=== PATIENT | male | born 1995 ===

== ENCOUNTER 2020-08-15 15:01 | Emergency (ER) | payer OTHER ==
[2020-08-15 15:23] VITALS: BP 125/65
[2020-08-15] MEDS ORDERED: IBUPROFEN 800 MG TAB PO ONE (15:49)
--- NOTE | 2020-08-15 15:50 | Emergency Department Report ---
ED Lower Extremity HPI - General Chief Complaint: Extremity Injury, Lower Stated Complaint: RT ANKLE ANKLE Time Seen by Provider: 08/15/20 15:27 Source: patient Mode of arrival: Ambulatory Limitations: No Limitations - History of Present Illness Initial Comments: 24 yr old male resents to the ER today complaining of right ankle pain. Patient states that 2 days ago while doing salsa dancing, he started noticing pain to his right ankle. He states that he was mild at first, but when he woke up the next morning it had increased in pain. Patient reports that the pain is mainly located to the anterior aspect of the right ankle. He denies any apparent swelling, bruising or erythema. He states that the pain seems to be worse when he has it still for long period of time. He states it does seem to get better when he stretches it. He has not tried any oral medication for it. He denies any prior injury to his ankle. Complaint: ankle injury (Right ankle) -: Sudden (2 days ago ) Injury: Ankle: Right - Related Data Previous Rx's Medication Instructions Recorded Last Taken Type Ibuprofen [Motrin] 800 mg PO Q8HR PRN #30 tablet 08/15/20 Unknown Rx Allergies Allergy/AdvReac Type Severity Reaction Status Date / Time No Known Allergies Allergy Unverified 08/15/20 15:20 ED Review of Systems ROS: Stated complaint: RT ANKLE ANKLE Other details as noted in HPI Comment: All other systems reviewed and negative Musculoskeletal: arthralgia. denies: back pain, joint swelling, myalgia ED Past Medical Hx - Past Medical History Previous Medical History?: No - Surgical History Past Surgical History?: No - Social History Smoking Status: Never Smoker Substance Use Type: Alcohol - Medications Home Medications: Home Medications Medication Instructions Recorded Confirmed Last Taken Type Ibuprofen [Motrin] 800 mg PO Q8HR PRN #30 tablet 08/15/20 Unknown Rx ED Physical Exam - General Limitations: No Limitations General appearance: alert, in no apparent distress - Head Head exam: Present: atraumatic, normocephalic, normal inspection - Respiratory Respiratory exam: Absent: respiratory distress - Cardiovascular Cardiovascular Exam: Present: regular rate - Extremities Exam Extremities exam: Present: other (There is moderate tenderness to palpation to the anterior lateral aspect of the right ankle. No apparent swelling. No apparent ecchymosis or erythema. No deformity. He does have full range of motion of the ankle but it is painful.) - Neurological Exam Neurological exam: Present: alert, oriented X3, CN II-XII intact, normal gait. Absent: motor sensory deficit - Psychiatric Psychiatric exam: Present: normal affect, normal mood - Skin Skin exam: Present: intact ED Course Vital Signs 08/15/20 08/15/20 15:21 16:29 Temperature 98.8 F Pulse Rate 66 Respiratory 16 18 Rate Blood Pressure 125/65 O2 Sat by Pulse 97 Oximetry ED Lower Extremity MDM - Radiology Data Radiology results: report reviewed Findings [facility] [address] [place] [address] XRay Report Signed Patient: MARYBETH PEREZ MR#: [id number] : 1995 Acct:[id number] Age/Sex: 24 / M ADM Date: 08/15/20 Loc: ED Attending Dr: Ordering Physician: PEGGY GARCIA Date of Service: 08/15/20 Procedure(s): XR ankle 3+V RT Accession Number(s): [id number] cc: PEGGY GARCIA Fluoro Time In Minutes: RIGHT ANKLE 3 VIEWS INDICATION / CLINICAL INFORMATION: Right ankle pain/injury while dancing COMPARISON: None available. FINDINGS: BONES and JOINT(S): No acute fracture or subluxation. No significant arthritis. SOFT TISSUES: Mild edema is seen anteriorly and medially. ADDITIONAL FINDINGS: None. IMPRESSION: Mild right ankle edema without an acute osseous abnormality. Signer Name: Leonardo Torres MD Signed: 08/15/2020 4:22 PM Workstation Name: [id number] Transcribed By: MN Dictated By: Leonardo Torres MD Electronically Authenticated By: Leonardo Torres MD Signed Date/Time: 08/15/201621 DD/ 20 TD/TT: Critical care attestation.: If time is entered above; I have spent that time in minutes in the direct care of this critically ill patient, excluding procedure time. ED Disposition Clinical Impression: Right ankle sprain Disposition: DC-01 TO HOME OR SELFCARE Is pt being admited?: No Does the pt Need Aspirin: No Condition: Stable Instructions: RICE Therapy for Routine Care of Injuries, [id number], Ankle Sprain, [id number] Additional Instructions: Take the Motrin as prescribed. It is important that you follow the RICE therapy on your discharge instructions to help with your ankle sprain. Elevate your ankle as often as possible for the next couple days. If your symptoms persist for another 7 to 10 days it is important that you follow-up with case resolution specialist. Return to the ER if your symptoms changes or worsens in any way. Prescriptions: Ibuprofen [Motrin] 800 mg PO Q8HR PRN #30 tablet PRN Reason: Pain , Severe (7-10) Referrals: KYLE VILLAGRAN MD [Staff Physician] - 7-10 days Forms: Work/School Release Form(ED) Time of Disposition: 16:40
--- NOTE | 2020-08-15 16:26 | XRay Report ---
RIGHT ANKLE 3 VIEWS INDICATION / CLINICAL INFORMATION: Right ankle pain/injury while dancing COMPARISON: None available. FINDINGS: BONES and JOINT(S): No acute fracture or subluxation. No significant arthritis. SOFT TISSUES: Mild edema is seen anteriorly and medially. ADDITIONAL FINDINGS: None. IMPRESSION: Mild right ankle edema without an acute osseous abnormality. Signer Name: Leonardo Torres MD Signed: 08/15/2020 4:22 PM Workstation Name: [id number]
== END 2020-08-15 17:08 | disposition home or self-care (01) ==
LOC: ED 15:01
DX: S93.401A Sprain of unspecified ligament of right ankle, initial encounter (principal); Z79.1 Long term (current) use of non-steroidal anti-inflammatories (NSAID); X58.XXXA Exposure to other specified factors, initial encounter; Y93.89 Activity, other specified; Y92.89 Other specified places as the place of occurrence of the external cause; Y99.8 Other external cause status
CPT/HCPCS: 99283